=== PATIENT | female | born 1975 | race Two or more races ===

== ENCOUNTER 2018-05-29 12:21 | Emergency (ER) | payer SELFPAY ==
[~2018-05-29] VITALS: Ht 157.5 cm; Wt 54.4 kg
[2018-05-29 12:43] VITALS: BP 112/72
== END 2018-05-29 16:58 | disposition home or self-care (01) ==
LOC: ER 12:24
DX: N39.0 Urinary tract infection, site not specified (principal)
CPT/HCPCS: 81002

== ENCOUNTER 2019-02-10 04:47 | Emergency (ER) | payer MEDICAID ==
[~2019-02-10] VITALS: Ht 157.5 cm; Wt 59.0 kg
[2019-02-10 05:47] LABS: Urine Bacteria MANY /hpf (None Seen); Urine Blood 1+ /uL (Negative); Urine Specific Gravity 1.019 (1.001-1.035); Urine WBC 1083 /hpf (0 - 5); Urine WBC Clumps PRESENT /hpf (None Seen)
[2019-02-10 06:28] VITALS: BP 128/82
[2019-02-10] MEDS ORDERED: cefTRIAXone SOD 1,000 MG VL IM ONE (06:30)
== END 2019-02-10 06:47 | disposition home or self-care (01) ==
LOC: ER 04:47
DX: N39.0 Urinary tract infection, site not specified (principal)
CPT/HCPCS: 81001; 87086; 96372; 99283; J0696